=== PATIENT | female | born 1980 | race Caucasian/White ===

== ENCOUNTER 2023-02-18 17:50 | Observation (INO) | payer BC, SELFPAY ==
--- NOTE | ~2023-02-18 | CT_ITS ---
EXAMINATION: CT ABDOMEN AND PELVIS WITHOUT CONTRAST CLINICAL INFORMATION: Right lower quadrant and right flank pain COMPARISON: None available. TECHNIQUE: Multidetector volumetric imaging was performed from the superior aspect of the liver through the pubic symphysis. Sagittal and coronal reformatted images were obtained on the technologist's workstation. This CT examination was performed using dose optimization techniques as appropriate, variously including the following: *Automated exposure control *Adjustment of mA and/or kV according to patient size (this includes techniques or standardized protocols for targeted exams where dose is matched to indication/reason for exam; i.e. extremities or head) *Use of iterative reconstruction technique DLP: 909 mGy-cm FINDINGS: LUNG BASES: The visualized lung bases are unremarkable. LIVER, GALLBLADDER, AND BILIARY TREE: The liver is normal in size, shape, and attenuation. No focal hepatic lesion or biliary ductal dilatation is present. The gallbladder is unremarkable with no evidence of radiopaque gallstones, gallbladder wall thickening, or obvious pericholecystic inflammatory changes. PANCREAS: Unremarkable. SPLEEN: Unremarkable. ADRENAL GLANDS: Unremarkable. KIDNEYS AND URETERS: The kidneys are normal in size, shape, and attenuation. No hydronephrosis, hydroureter, or calculi seen. No perinephric stranding. BLADDER: Unremarkable. GASTROINTESTINAL TRACT: The small and large bowel are unremarkable. The appendix is upper normal in size measuring 8 mm. The appendix is fluid-filled. Periappendiceal fat is normal. Appearance is questionable for early acute appendicitis. Clinical correlation recommended. ABDOMINAL WALL: No significant hernia is appreciated. LYMPH NODES: Small, small bowel mesentery. No enlarged lymph nodes. No ascites. VASCULAR: Unremarkable. PELVIC VISCERA: IUD in the uterus in satisfactory position. OSSEOUS STRUCTURES: Unremarkable. CT/CT abdomen pelvis wo IV con IMPRESSION: Upper normal-size fluid-filled appendix. The periappendiceal fat is normal. Appearance is questionable for early acute appendicitis. Clinical correlation recommended. Fleischner guidelines were followed.
[2023-02-18 18:47] VITALS: BP 144/94; PULSE 90; TEMP 36.8; O2SAT 99; BMI 30.1
--- NOTE | 2023-02-18 18:47 | ED.ABDPAIN ---
HPI - Abdominal Pain General Chief Complaint: Abdominal Pain Stated Complaint: abd pain/celiac disease? Time Seen by Provider: 02/18/23 21:17 Source: patient Mode of arrival: ambulatory Limitations: no limitations History of Present Illness HPI narrative: Patient is 42 years old history of celiac disease usually she gets upper abdominal pain and diarrhea with when flare-up of celiac disease but she has not eaten any fluid and food lately woke up 2 days ago in the morning with mid abdominal discomfort which continued got worse today in the afternoon with nausea and pain radiating to right lower abdomen increases on ambulation does not feel hungry no fever or chills no urine complaints. Patient had few chips earlier today Related Data Home Medications Medication Instructions Recorded Confirmed Methylfolate 1,000 mg PO DAILY 02/18/23 Probiotic 1 cap PO DAILY 02/18/23 02/18/23 cyanocobalamin (vitamin B-12) 1,000 mcg PO DAILY 02/18/23 02/18/23 1,000 mcg tablet lisdexamfetamine 70 mg capsule 70 mg PO DAILY 02/18/23 02/18/23 (Vyvanse) rimegepant 75 mg disintegrating 75 mg PO DAILY PRN migraine 02/18/23 02/18/23 tablet (Nurtec ODT) semaglutide 1 pen subcut SA 02/18/23 02/18/23 Allergies Allergy/AdvReac Type Severity Reaction Status Date / Time gluten [GLUTEN] Allergy Unknown UNKNOWN Verified 02/18/23 18:53 corn Allergy Unknown Verified 02/18/23 18:54 Review of Systems Review of Systems Yes all other systems are reviewed and are negative [facility] Past Medical History Medical History Celiac disease Social History Social History Patient Tobacco Use Status: Never used Tobacco Smoked in Last 30 Days: No Second Hand Smoke Exposure: No Use of substances other than those prescribed or required for medical reasons: No Advance Directives: No Advance Directives Information Provided: No Physical Exam ED Vital Signs: Vital Signs - 24 hr 02/18/23 18:47 02/18/23 21:11 Temperature 98.2 F 98.8 F Pulse Rate 90 74 Respiratory Rate 16 Blood Pressure 144/94 H 112/70 Pulse Oximetry 99 99 Oxygen Delivery Method Room Air Room Air BMI result Body Mass Index 30.1 Appearance: Alert. Oriented X3. No acute distress. Eyes: PERRLA, No Nystagmus ENT: Pharynx normal. Oral Mucosa moist Neck: Normal inspection. Neck supple. CVS: Normal heart rate and rhythm. Pulses normal. Respiratory: No respiratory distress. Equal air entry bilateral, no wheezing/rales/rhonchi Abdomen: Soft, deep tenderness right lower quadrant with guarding no rebound tenderness. Bowel sounds are present, no mass palpable, no CVA tenderness Skin: Skin warm and dry. Normal skin color. Normal skin turgor. Extremities: No lower extremity edema. No calf tenderness Neuro: Oriented X 3. No motor deficit. Course Course Course Narrative: RME - 42 y/o female with history of Celiac disease presents to the ER for evaluation of RLQ pain that started 3 days ago. She reports it started as right lower back and right hip pain 4 days ago but has since migrated to the abdomen. + nausea but no vomiting, diarrhea or urinary symptoms. Plan: labs, UA, CT scan abd/pelvis Medical Decision Making Medical Decision Making [facility] Narrative: Patient with early appendicitis case discussed Dr. Duarte will admit patient to his service for possible appendectomy Lab Data [facility] Lab Attestation statement: I reviewed the patient's lab results. 02/18/23 19:05 02/18/23 19:05 Labs: Lab Results 02/18/23 02/18/23 02/18/23 Range/Units 19:04 19:05 19:05 WBC 8.1 (4.8-10.8) X10*3/uL RBC 5.10 (4.20-5.50) X10*6/uL Hgb 14.7 (12.0-16.0) g/dl Hct 45.1 (37.0-47.0) % MCV 88.4 (80.0-98.0) fL MCH 28.8 (27.0-33.0) pg MCHC 32.6 (31.0-35.0) g/dl RDW 11.9 (11.0-16.0) % Plt Count 346 (160-400) X10*3/uL MPV 9.3 L (9.4-12.3) fL Immature Gran % (Auto) 0.2 (0.0-0.4) % Neut % (Auto) 66.4 (45-73) % Lymph % (Auto) 24.2 (20-40) % [place] % (Auto) 7.5 (2-11) % Eos % (Auto) 1.2 (0-4) % Baso % (Auto) 0.5 (0-2) % Lymph # (Auto) 2.0 (1.2-4.9) X10*3/uL [place] # (Auto) 0.6 (0.1-1.2) X10*3/uL Eos # (Auto) 0.1 (0.0-0.4) X10*3/uL Baso # (Auto) 0.0 (0.0-0.2) X10*3/uL Abs Immat Gran (auto) 0.02 (0.00-0.03) X10*3/uL Absolute Neuts (auto) 5.4 (2.0-8.3) x10*3/uL Absolute Nucleated RBC 0.000 (0.0-0.012) X10*3/uL Nucleated RBC % (auto) 0.0 (0.0-0.2) /100WBC Sodium 139 (135-145) mmol/L Potassium 3.9 (3.3-5.1) mmol/L Chloride 104 (96-108) mmol/L Carbon Dioxide 26 (22-29) mmol/L Anion Gap 13 (12-20) BUN 11 (9-16) mg/dL Creatinine 0.84 (0.5-1.4) mg/dL Estim Creat Clear Calc 111.3 Estimated GFR > 60 Random Glucose 86 (60-115) mg/dL Calcium 9.5 (8.4-10.2) mg/dL Magnesium 2.0 (1.6-2.6) mg/dL Total Bilirubin 0.9 (0.0-1.0) mg/dL Direct Bilirubin 0.2 (0.0-0.5) mg/dL AST 19 (5-31) U/L ALT 18 (0-31) U/L Alkaline Phosphatase 63 (39-117) U/L Total Protein 7.8 (6.5-8.0) g/dL Albumin 4.4 (3.5-5.0) g/dL Beta HCG, Quant < 2 mIU/mL Urine Color Urine Appearance Urine pH (5.0-9.0) Ur Specific [place] (1.005-1.025) Urine Protein (Neg-Trace) mg/dL Urine Glucose (UA) (Negative) mg/dL Urine Ketones (Negative) mg/dL Urine Blood (Negative) Urine Nitrite (Negative) Ur Leukocyte Esterase (Negative) 02/18/23 Range/Units 19:07 WBC (4.8-10.8) X10*3/uL RBC (4.20-5.50) X10*6/uL Hgb (12.0-16.0) g/dl Hct (37.0-47.0) % MCV (80.0-98.0) fL MCH (27.0-33.0) pg MCHC (31.0-35.0) g/dl RDW (11.0-16.0) % Plt Count (160-400) X10*3/uL MPV (9.4-12.3) fL Immature Gran % (Auto) (0.0-0.4) % Neut % (Auto) (45-73) % Lymph % (Auto) (20-40) % [place] % (Auto) (2-11) % Eos % (Auto) (0-4) % Baso % (Auto) (0-2) % Lymph # (Auto) (1.2-4.9) X10*3/uL [place] # (Auto) (0.1-1.2) X10*3/uL Eos # (Auto) (0.0-0.4) X10*3/uL Baso # (Auto) (0.0-0.2) X10*3/uL Abs Immat Gran (auto) (0.00-0.03) X10*3/uL Absolute Neuts (auto) (2.0-8.3) x10*3/uL Absolute Nucleated RBC (0.0-0.012) X10*3/uL Nucleated RBC % (auto) (0.0-0.2) /100WBC Sodium (135-145) mmol/L Potassium (3.3-5.1) mmol/L Chloride (96-108) mmol/L Carbon Dioxide (22-29) mmol/L Anion Gap (12-20) BUN (9-16) mg/dL Creatinine (0.5-1.4) mg/dL Estim Creat Clear Calc Estimated GFR Random Glucose (60-115) mg/dL Calcium (8.4-10.2) mg/dL Magnesium (1.6-2.6) mg/dL Total Bilirubin (0.0-1.0) mg/dL Direct Bilirubin (0.0-0.5) mg/dL AST (5-31) U/L ALT (0-31) U/L Alkaline Phosphatase (39-117) U/L Total Protein (6.5-8.0) g/dL Albumin (3.5-5.0) g/dL Beta HCG, Quant mIU/mL Urine Color Yellow Urine Appearance Clear Urine pH 6.0 (5.0-9.0) Ur Specific [place] 1.010 (1.005-1.025) Urine Protein Negative (Neg-Trace) mg/dL Urine Glucose (UA) Negative (Negative) mg/dL Urine Ketones Negative (Negative) mg/dL Urine Blood Negative (Negative) Urine Nitrite Negative (Negative) Ur Leukocyte Esterase Negative (Negative) Radiology Impression Discussion of test interpretation with radiology: I have reviewed the radiologist's reading. Radiologist Impression: CT/CT abdomen pelvis wo IV con IMPRESSION: Upper normal-size fluid-filled appendix. The periappendiceal fat is normal. Appearance is questionable for early acute appendicitis. Clinical correlation recommended. Medications Administered Generic Name Dose Route Start Last Admin Trade Name Freq PRN Reason Stop Dose Admin Dextrose/Lactated Ringer's 1,000 mls @ 100 mls/hr 02/18/23 21:45 02/19/23 03:53 D5lr IVCONT 100 mls/hr .Q10H [facility] Infusion Piperacillin Sod/Tazobactam 50 mls @ 100 mls/hr 02/18/23 22:00 02/19/23 03:53 Sod 3.375 gm/ Sodium Chloride IV Infused Q6H [facility] Infusion Sodium Chloride 3 ml 02/19/23 00:00 02/18/23 23:44 0.9 % Sodium Chloride Flush 3 Ml Syringe IVFLUSH 3 ml QSHIFT [facility] Administration Discontinued Medications Generic Name Dose Route Start Last Admin Trade Name Freq PRN Reason Stop Dose Admin Sodium Chloride 1,000 mls @ 999 mls/hr 02/18/23 21:31 02/18/23 23:20 Ns IV 02/18/23 22:31 Infused .Q1H1M ONE Infusion Discharge Plan Discharge Clinical Impression: Acute appendicitis Patient Disposition: Admitted As Inpatient Interventions: Admission Worksheet (ED) Last Done: 02/18/23 22:56 Discharge Date/Time: 02/18/23 22:57
[2023-02-18 19:14] LABS: MANUAL DIFF FLAG NO
[2023-02-18 19:18] LABS: Basophils Percent Auto 0.5 % (0-2); Eosinophils Absolute Auto 0.1 X10*3/uL (0.0-0.4); Eosinophils Percent Auto 1.2 % (0-4); Hematocrit 45.1 % (37.0-47.0); Hemoglobin 14.7 g/dl (12.0-16.0); Imm Gran Abs Auto 0.02 X10*3/uL (0.00-0.03); Imm Gran Pct Auto 0.2 % (0.0-0.4); Lymphocytes Percent Auto 24.2 % (20-40); Mean Corpuscular HGB Conc 32.6 g/dl (31.0-35.0); Mean Corpuscular Hemoglobin 28.8 pg (27.0-33.0); Mean Corpuscular Volume 88.4 fL (80.0-98.0); Mean Platelet Volume 9.3 fL (9.4-12.3); Monocytes Absolute Auto 0.6 X10*3/uL (0.1-1.2); Monocytes Percent Auto 7.5 % (2-11); Neutrophils Absolute Auto 5.4 x10*3/uL (2.0-8.3); Neutrophils Percent Auto 66.4 % (45-73); Platelet Count 346 X10*3/uL (160-400); Red Cell Distribution Width 11.9 % (11.0-16.0); White Blood Count 8.1 X10*3/uL (4.8-10.8)
[2023-02-18 19:20] LABS: Appearance Urine Clear; Color Urine Yellow; Glucose Urine UA Negative (Negative); Leukocyte Esterase Urine Negative (Negative); Nitrite Urine Negative (Negative); Urine Blood Negative (Negative); Urine Ketones Negative (Negative); Urine Protein Negative (Neg-Trace)
[2023-02-18 19:42] LABS: Alanine Aminotransferase 18 U/L (0-31); Albumin Level 4.4 g/dL (3.5-5.0); Alkaline Phosphatase 63 U/L (39-117); Anion Gap 13 (12-20); Aspartate Amino Transferase 19 U/L (5-31); Bilirubin Direct 0.2 mg/dL (0.0-0.5); Bilirubin Total 0.9 mg/dL (0.0-1.0); Blood Urea Nitrogen 11 mg/dL (9-16); Calcium 9.5 mg/dL (8.4-10.2); Carbon Dioxide 26 mmol/L (22-29); Chloride 104 mmol/L (96-108); Creatinine Clr Calc Pharmacy 111.3; Estimated Glomerular Filt Rate > 60; Glucose Random 86 mg/dL (60-115); Potassium 3.9 mmol/L (3.3-5.1); Sodium 139 mmol/L (135-145); Total Protein 7.8 g/dL (6.5-8.0)
[2023-02-18 19:49] LABS: HCG Quantitative < 2 mIU/mL
--- NOTE | 2023-02-18 20:38 | PC.NURSE ---
Pt ca&ox4, ambulates with steady gait. No signs of distress, pt denies chest pain and sob. Pts family member at bedside. wctm.
[2023-02-18 21:11] VITALS: BP 112/70; PULSE 74; RESP 16; TEMP 37.1; O2SAT 99
[2023-02-18] MEDS: 0.9 % Sodium Chloride 1,000 ML 999 ML IV (22:04)
[2023-02-18] MEDS: Piperacillin Sodium/Tazobactam 3.375 GM in 0.9 % Sodium Chloride 50 ML IV (22:04)
--- NOTE | 2023-02-18 22:06 | PHA.MEDREC ---
Pharmacy Consult ? Medication Reconciliation Pharmacy has completed the medication reconciliation. Patient report all medications. Patient will have someone bring Vyvanse in the morning. Stacey Payton, BillyD
--- NOTE | 2023-02-18 22:11 | PC.NURSE ---
Pt medicated per oct. Pt ca&ox4. Pt family member at bedside. instrument technologist in with pt reviewing belongings list. wctm.
[2023-02-18 23:34] VITALS: BP 119/66; PULSE 66; RESP 16; TEMP 36.1; O2SAT 99
[2023-02-18] MEDS: 0.9 % Sodium Chloride Flush 3 ML SYRINGE IVFLUSH (23:44)
[2023-02-18] MEDS: Dextrose 5 % and Lactated Ring 1,000 ML 100 ML IVCONT (23:44)
[2023-02-19 00:50] VITALS: BMI 30.1
[2023-02-19 03:09] VITALS: BP 119/65; PULSE 72; RESP 16; TEMP 36.4; O2SAT 95
[2023-02-19] MEDS: Piperacillin Sodium/Tazobactam 3.375 GM in 0.9 % Sodium Chloride 50 ML IV ×2 (03:21→08:55)
[2023-02-19 04:00] VITALS: RESP 18
[2023-02-19 05:52] LABS: MANUAL DIFF FLAG NO
[2023-02-19 06:04] LABS: Basophils Percent Auto 0.6 % (0-2); Eosinophils Absolute Auto 0.1 X10*3/uL (0.0-0.4); Eosinophils Percent Auto 2.1 % (0-4); Hematocrit 40.7 % (37.0-47.0); Hemoglobin 13.5 g/dl (12.0-16.0); Imm Gran Abs Auto 0.02 X10*3/uL (0.00-0.03); Imm Gran Pct Auto 0.3 % (0.0-0.4); Lymphocytes Absolute Auto 1.8 X10*3/uL (1.2-4.9); Lymphocytes Percent Auto 28.7 % (20-40); Mean Corpuscular HGB Conc 33.2 g/dl (31.0-35.0); Mean Corpuscular Hemoglobin 29.5 pg (27.0-33.0); Mean Corpuscular Volume 88.9 fL (80.0-98.0); Mean Platelet Volume 9.9 fL (9.4-12.3); Monocytes Absolute Auto 0.5 X10*3/uL (0.1-1.2); Monocytes Percent Auto 8.5 % (2-11); Neutrophils Absolute Auto 3.7 x10*3/uL (2.0-8.3); Neutrophils Percent Auto 59.8 % (45-73); Platelet Count 291 X10*3/uL (160-400); Red Blood Count 4.58 X10*6/uL (4.20-5.50); Red Cell Distribution Width 12.1 % (11.0-16.0); White Blood Count 6.2 X10*3/uL (4.8-10.8)
[2023-02-19 07:26] VITALS: BP 117/62; PULSE 74; RESP 16; TEMP 36; O2SAT 97
--- NOTE | 2023-02-19 07:47 | PM.HPGS ---
History of Present Illness History of Present Illness Date of Service: 02/19/23 Chief complaint: early appendicitis Narrative: Donna Reich is a 42 year old female who presented to the ED with 3-4 day history of right back and RLQ abd pain. She reports she was awoken out of sleep Pierre night with right lower back pain. This pain eventually migrated to the RLQ and persisted. Due to the persistence and worsening of pain, she went to urgent care yesterday who sent her to the ED. She reports nausea without vomiting and diarrhea. Work up in the ED included CT scan which showed a dilated fluid filled appendix which was upper normal in size without surrounding inflammatory changes. WBC count was normal. This morning, she feels improved with less abd pain. She would like to eat. Review of Systems Constitutional: Constitutional: Denies chills and Denies fever(s) ENT: Denies dizziness Cardiovascular: Cardiovascular: Denies chest pain and Denies dyspnea Respiratory: Respiratory: Denies cough and Denies dyspnea Gastrointestinal: Gastrointestinal: Reports as per HPI Genitourinary: Genitourinary: Denies hematuria and Denies dysuria Integumentary/Breasts: Skin/Breast: Denies rash and Denies jaundice Neurologic: Denies dizziness PMFSH Past Medical History Medical History Celiac disease Social History Social History Patient Tobacco Use Status: Never used Tobacco Smoked in Last 30 Days: No Second Hand Smoke Exposure: No Use of substances other than those prescribed or required for medical reasons: No Advance Directives: No Advance Directives Information Provided: No Meds Allergies Allergy/AdvReac Type Severity Reaction Status Date / Time gluten [GLUTEN] Allergy Unknown UNKNOWN Verified 02/18/23 18:53 corn Allergy Unknown Verified 02/18/23 18:54 Active Medications: Current Medications Acetaminophen (Acetaminophen 325 Mg Tablet) 650 mg PO QID PRN PRN Reason: headache, temp > 101 Hydromorphone HCl (Hydromorphone Hcl 0.5 Mg/0.5 Ml Syringe) 0.5 mg IVPUSH Q3H PRN; Protocol PRN Reason: Pain, Severe (Pain Scale 7-10) Dextrose/Lactated Ringer's (D5lr) 1,000 mls @ 100 mls/hr IVCONT .Q10H [facility] Last Infusion: 02/19/23 03:53 Dose: 100 mls/hr Piperacillin Sod/Tazobactam (Sod 3.375 gm/ Sodium Chloride) 50 mls @ 100 mls/hr IV Q6H [facility] Last Infusion: 02/19/23 03:53 Dose: Infused Ondansetron HCl (Ondansetron Hcl 4 Mg/2 Ml Vial) 4 mg IVPUSH QID PRN PRN Reason: Nausea Oxycodone HCl (Oxycodone Hcl Immed Release 5 Mg Tablet) 5 mg PO Q6H PRN PRN Reason: Pain, Moderate(Pain Scale 4-6) Pharmacy Consult (Consult Rx Perform Med Rec) 1 each MISCELLANE ONCE PRN PRN Reason: Consult order Sodium Chloride (0.9 % Sodium Chloride Flush 3 Ml Syringe) 3 ml IVFLUSH QSHIFT [facility] Last Admin: 02/19/23 07:22 Dose: Not Given Zolpidem Tartrate (Zolpidem Tartrate 5 Mg Tablet) 5 mg PO BEDTIME PRN PRN Reason: Insomnia Home Medications Medication Instructions Recorded Confirmed Last Taken Type Methylfolate 1,000 mg PO DAILY 02/18/23 Unknown History Probiotic 1 cap PO DAILY 02/18/23 02/18/23 Unknown History cyanocobalamin (vitamin B-12) 1,000 mcg PO DAILY 02/18/23 02/18/23 Unknown History 1,000 mcg tablet lisdexamfetamine 70 mg capsule 70 mg PO DAILY 02/18/23 02/18/23 Unknown History ([place]) rimegepant 75 mg disintegrating 75 mg PO DAILY PRN migraine 02/18/23 02/18/23 Unknown History tablet (Nurtec ODT) semaglutide 1 pen subcut SA 02/18/23 02/18/23 Unknown History Physical Exam Vital Signs: Vital Signs: Last Vital Signs Temp 96.8 F 02/19/23 07:26 Pulse 74 02/19/23 07:26 Resp 16 02/19/23 07:26 BP 117/62 02/19/23 07:26 Pulse Ox 97 02/19/23 07:26 O2 Del Method Room Air 02/19/23 07:26 BMI result Body Mass Index 30.1 Const: General: comfortable, no acute distress and alert Orientation/consciousness: patient oriented x3 Resp: Effort & Inspection: normal respiratory effort GI: Inspection: Yes normal to inspection and No distended Palpation (GI): Soft to palpation, Tenderness to palpation present (GI) in the RLQ (very mild); with no rebound tenderness and Rovsing's sign negative, no guarding and not rigid Percussion: Yes normal to percussion Skin: General skin exam: no rashes or lesions noted Neuro: General: patient oriented x3 and moves all extremities Extrem: General: Yes no clubbing, cyanosis or edema Results Results Labs: Short CBC 02/18/23 02/19/23 Range/Units 19:05 05:24 WBC 8.1 6.2 (4.8-10.8) X10*3/uL Hgb 14.7 13.5 (12.0-16.0) g/dl Hct 45.1 40.7 (37.0-47.0) % Plt Count 346 291 (160-400) X10*3/uL BMP 02/18/23 19:05 Sodium 139 Potassium 3.9 Chloride 104 Carbon Dioxide 26 BUN 11 Creatinine 0.84 Calcium 9.5 Liver Function 02/18/23 Range/Units 19:05 Total Bilirubin 0.9 (0.0-1.0) mg/dL Direct Bilirubin 0.2 (0.0-0.5) mg/dL AST 19 (5-31) U/L ALT 18 (0-31) U/L Alkaline Phosphatase 63 (39-117) U/L Albumin 4.4 (3.5-5.0) g/dL Urine 02/18/23 Range/Units 19:07 Urine Color Yellow Urine Appearance Clear Urine pH 6.0 (5.0-9.0) Ur Specific [place] 1.010 (1.005-1.025) Urine Protein Negative (Neg-Trace) mg/dL Urine Glucose (UA) Negative (Negative) mg/dL Abdomen CT scan report/results: report reviewed and image reviewed Assessment and Plan (1) Acute appendicitis: Status: Acute Plan 42 year female with 3-4 day history of RLQ abd pain with dilated fluid filled appendix on CT scan consistent with early acute appendicitis. She was admitted to the surgical service for further treatment of the acute appendicitis. She is non toxic appearing with a benign abd exam and feels improved with IV abx. Recommended continuing nonoperative treatment with IV abx and observation with possible interval appendectomy down the line as long she continues to improve. She is comfortable with this plan. Will advance her diet. Possible home later today or tomorrow morning if remains stable and tolerating solid diet. Time Spent With Patient Time: Total time managing care of this patient today ____ minutes. Quality Stroke Does the patient have a stroke diagnosis?: No VTE Prior VTE?: No VTE Risk Level:: Surgical - low VTE Device Contraindication: N/A - Device Ordered VTE Drug Contraindication: Treatment Not Indicated Procedures Date of Service Date of Service: 02/19/23
[2023-02-19 11:40] VITALS: BP 134/66; PULSE 86; RESP 16; TEMP 36; O2SAT 96
--- NOTE | 2023-02-19 12:46 | MHC.CM.PN ---
GERBER 02/19/23 Female 42 DX Appendicites She lives with her S.O.. She is independent with all functional mobility. She declined the offer to document a HCP. She is covid vaxxed.She does not have a PCP. The [facility] brochure has been provided to the patient. She reports that she is insured by [employer]. She stated that Financial services obtained the info this am. DP home self care. S.O. will provide transport home.
--- NOTE | 2023-02-19 13:40 | MHC.CM.PN ---
ZABRINA 02/19/23 Patient discharged to home self care. She has arranged for transportation home.
--- NOTE | 2023-02-25 09:04 | PM.DS ---
DS: Providers Provider Date of Service: 02/19/23 Date of admission: 02/18/23 21:48 Date of discharge: 02/19/23 Primary care physician: Silvia Physician Attending physician on admission: Dani Duarte Attending physician on discharge: Dani Duarte DS: Diagnosis Discharge Diagnosis (1) Acute appendicitis: Status: Acute DS: Summary Hospital Course Hospital Course: HPI AT ADMISSION: Donna Reich is a 42 year old female who presented to the ED with 3-4 day history of right back and RLQ abd pain. She reports she was awoken out of sleep [place] night with right lower back pain. This pain eventually migrated to the RLQ and persisted. Due to the persistence and worsening of pain, she went to urgent care yesterday who sent her to the ED. She reports nausea without vomiting and diarrhea. Work up in the ED included CT scan which showed a dilated fluid filled appendix which was upper normal in size without surrounding inflammatory changes. WBC count was normal. HOSPITAL COURSE: She was admitted to the surgical service for further treatment of the acute appendicitis. She felt improved following IV abx and it was recommended to continue observation and antibiotic therapy with possible interval appendectomy. She felt hungry. Her diet was advanced. She was seen later in the day and continued to feel well without any abdominal pain and very minimal RLQ tenderness. She was tolerating a solid diet. She felt ready for discharge to home. She was discharged on 02/19/23 in stable condition on a 10 day course of PO Augmentin. She is to follow up in the office in [address] Duarte. Status at Discharge Functional status at discharge: independent ambulation Overall status at discharge: patient is progressing back to baseline Time Spent with Patient Time attestation: Total time managing care of this patient today ____ minutes. Discharge coordination time: Less than 30 minutes Quality: Safe Use of Opioids Does Pt have an Active Cancer Diagnosis on the Problem List?: No Quality: Stroke Does the patient have a stroke diagnosis?: No Physical Exam Vital Signs: Vital Signs: Last Vital Signs Temp 96.8 F 02/19/23 11:40 Pulse 86 02/19/23 11:40 Resp 16 02/19/23 11:40 BP 134/66 02/19/23 11:40 Pulse Ox 96 02/19/23 11:40 O2 Del Method Room Air 02/19/23 11:40 BMI result Body Mass Index 30.1 Const: General: comfortable, no acute distress and alert Orientation/consciousness: patient oriented x3 Resp: Effort & Inspection: normal respiratory effort GI: Inspection: No distended Palpation (GI): Soft to palpation, Tenderness to palpation present (GI) (very mild RLQ ) Rovsing's sign negative, no guarding and not rigid Percussion: Yes normal to percussion Skin: General skin exam: no rashes or lesions noted Neuro: General: patient oriented x3 and moves all extremities Discharge Plan Discharge Patient Disposition: Home, Self-Care Discharge Diagnosis: acute appendicitis Referrals: Dani Duarte MD [Physician] - 1 Week Physician,None [Primary Care Provider] - 1 Week Discharge Medications: New amoxicillin-pot clavulanate 875-125 mg tablet 1 tab PO BID Qty: 20 0RF Continued cyanocobalamin (vitamin B-12) 1,000 mcg Tablet 1,000 mcg PO DAILY Vyvanse 70 mg capsule 70 mg PO DAILY Nurtec ODT 75 mg tablet,disintegrating 75 mg PO DAILY PRN (Reason: migraine) Methylfolate 1,000 mg PO DAILY Probiotic 1 cap PO DAILY semaglutide 1 pen subcut SA Discharge Orders: Discharge Order (Routine); Ordered 02/19/23 Ordered By: Khushi Hanson Diet: Advance to usual diet Activity on Discharge: As tolerated Stand Alone Forms: Patient Portal Discharge page Activity Restrictions/Additional Instructions: Follow up in office in a week. ([phone]) Call Your Doctor If: ? ? -Your temperature exceeds 101.5? F? ? ? -You experience excessive pain or swelling ? ? -You have an unexpected reaction to medication ? ? -You experience continued vomiting/nausea Care Plan Goals: Resolution of appendicitis. Return to baseline health and resume normal activities. Health Concerns: acute appendicitis Plan of Treatment: IV transitioned to PO abx F/u in office with Dr. Duarte in 1 week Assessment: Improved Discharge Date/Time: 02/19/23 13:46
== END 2023-02-19 13:46 | disposition home or self-care (01) ==
LOC: HO.ED 21:45 → HO.EDOVER 22:02 → HO.S3 22:18
PROVIDERS: Physician Assistant; Admitting Provider Surgery; Emergency Provider Internal Medicine; Visit Provider Surgery
DX: K35.80 Unspecified acute appendicitis (principal); R10.10 Upper abdominal pain, unspecified
CPT/HCPCS: 36415; 74176; 80048; 80076; 81003; 83735; 84702; 85025; 96361; 96365; 96366; 99221; 99285; J2543

== ENCOUNTER 2023-03-07 14:15 | Outpatient (AMB) | payer BC, SELFPAY ==
--- NOTE | 2023-03-07 14:18 | A.OFFVIS_ITS ---
Intake Vital Signs 03/07/23 14:25 Height 5 ft 10 in Weight 266 lb BMI 38.2 BP 124/73 Blood Pressure Location Lt brachial Position Sitting Pulse 84 Intake Visit Reasons: Follow-up to ER visit/appendicitis Intake Note: Patient is seen in office for ER follow up visit, following appendecitis. Patient c/o: sincel leaving the hospital has been feeling better, had couple of episodes of pain in the area, pain right flank and RLQ, denies nausea, vomit, admitsdiarrhea & constipation Lozenge Maker Required: No Accompanied by: Self / Same As Patient Allergies gluten [GLUTEN] Allergy (Unknown, Verified 03/07/23 14:26) UNKNOWN corn Allergy (Verified 03/07/23 14:) Unknown Medication List - Last Reconciled 03/07/23 by Dani Duarte MD cyanocobalamin (vitamin B-12) 1,000 mcg PO DAILY lisdexamfetamine (Vyvanse) 70 mg PO DAILY [Methylfolate 1,000 mg PO DAILY] [Probiotic 1 cap PO DAILY] rimegepant (Nurtec ODT) 75 mg PO DAILY PRN [semaglutide 1 pen subcut SA] HPI HPI Comments History of Present Illness Details 42-year-old female patient evaluated in the emergency department on 02/18/2023 for complaints of right lower quadrant abdominal pain. Pain began in the right lower back and eventually radiated to the right lower quadrant seem to be increasing in severity was associated with no nausea, vomiting, fever or chills. She subsequently presented to the emergency department was noted to be tender in the right lower quadrant. WBC count was normal. CT abdomen and pelvis was negative except for a mildly dilated appendix without inflammatory changes. No abscess could be identified. Acute appendicitis could not be ruled out. She was subsequently admitted overnight and placed on IV antibiotics. By the next day she felt improved with decreased abdominal pain and a normal appetite. She was subsequently given a diet and tolerated this well. She was discharged home on oral antibiotics and returns today for follow-up examination. [facility] Medical History Celiac disease Family History (Updated 03/07/23 @ 14:27 by SUMANTH Silverman) Maternal Grandfather Prostate cancer Father Prostate cancer Social History Patient Tobacco Use Status: Never used Tobacco Second Hand Smoke Exposure: No service: No Review of Systems Const Details: Constitutional: Constitutional: Denies chills and Denies fever(s) ENT: Denies dizziness Cardiovascular: Cardiovascular: Denies chest pain and Denies dyspnea Respiratory: Respiratory: Denies cough and Denies dyspnea Gastrointestinal: Gastrointestinal: Reports as per HPI Genitourinary: Genitourinary: Denies hematuria and Denies dysuria Integumentary/Breasts: Skin/Breast: Denies rash and Denies jaundice Neurologic: Denies dizziness Physical Exam Vital Signs: Last Vital Signs Temp 96.8 F 02/19/23 11:40 Pulse 86 02/19/23 11:40 Resp 16 02/19/23 11:40 BP 134/66 02/19/23 11:40 Pulse Ox 96 02/19/23 11:40 O2 Del Method Room Air 02/19/23 11:40 BMI result Body Mass Index 30.1 Const General: comfortable, no acute distress and alert Orientation/consciousness: patient oriented x3 Resp Effort & Inspection: normal respiratory effort GI Inspection: No distended Palpation (GI): Soft to palpation, nontender, no guarding and not rigid Percussion: Yes normal to percussion Skin General skin exam: no rashes or lesions noted Neuro General: patient oriented x3 and moves all extremities Assessment & Plan Assessment & Plan (1) Acute appendicitis: Code(s): K35.80 - Unspecified acute appendicitis Plan 42-year-old female patient presenting for follow-up examination after recent admission for possible early appendicitis. Mild enlargement of the appendix was identified by CT with no inflammatory changes. The patient was observed overnight and subsequently discharged home on 02/19/2023. Since her discharge she has had some mild symptoms which resolved spontaneously. She currently feels well and denies any nausea, vomiting, fever, or chills. By history and examination this is unlikely to be acute appendicitis. She is welcome to call the office should her symptoms return. No surgical intervention is required at this time. Coding Level of Care Code Est Pt Level 3 (28793) Diagnoses Acute appendicitis K35.80
[2023-03-07 14:25] VITALS: BP 124/73; PULSE 84; BMI 38.2
== END 2023-03-07 14:34 | disposition home or self-care (01) ==
PROVIDERS: Visit Provider Surgery
DX: K35.80 Unspecified acute appendicitis (principal)
CPT/HCPCS: 99213

== ENCOUNTER → 2023-03-07 14:15 | Outpatient (BNVA) | payer BC, SELFPAY | PROVIDERS: Visit Provider Surgery ==